=== PATIENT | male | born 1935 | race Caucasian/White ===

== ENCOUNTER 2017-02-04 18:01 | Emergency (ER) | payer MEDICARE ==
[2017-02-04 18:25] VITALS: BP 167/75
[2017-02-04] MEDS ORDERED: AZIT250T PO (18:52)
--- NOTE | 2017-02-04 18:53 | PHYS DOC ---
General Chief Complaint: SORE THROAT Stated Complaint: SORE THROAT Time Seen by MD: 18:51 Source: patient Exam Limitations: no limitations Problems: History of Present Illness Initial Comments Pt is 81/M to ED c/o sore throat. Pt states for past week or so he's had sore throat. No measured fevers, no myalgias/diaphoresis/RYAN. Pt eating and drinking well, OTC meds not helping. Pt also with facial pressure and green nasal discharge/PND Timing/Duration: last week Severity: mild Location: throat, facial Prearrival Treatment: over the counter meds Modifying Factors: worse with coughing Associated Symptoms: cough, sinus infection, sore throat Allergies: Coded Allergies: No Known Drug Allergies (Unverified , 02/04/17) Past Medical History Medical History: hypertension (CAD, HLP) Surgical History: cholecystectomy, coronary bypass surgery Social History Smoker: non-smoker Alcohol: none Drugs: none Constitutional: denies chills, denies fever Eyes: denies blindness, denies blurred vision, denies drainage, denies decreased acuity Ears: denies dizziness, denies pain Nose: see HPIdenies clots Throat: see HPI Respiratory: coughdenies shortness of breath, denies wheezing Cardiovascular: denies chest pain, denies palpitations Gastrointestinal: denies diarrhea, denies nausea, denies vomiting Physical Exam General Appearance: WD/WN, no apparent distress Ears: bilateral ear TM normal, bilateral ear auricle normal, bilateral ear canal normal Nose: discharge, sinus tenderness Mouth/Throat: other (pharynx red with exudate airway patent) Neck: supple, trachea midline, lymphadenopathy (R), lymphadenopathy (L) Cardiovascular/Respiratory: normal peripheral pulses, normal breath sounds, no respiratory distress Neurologic/Psychiatric: gauge maker II-XII nml as tested, no motor/sensory deficits, alert, normal mood/affect, oriented x 3 Skin: normal color, warm/dry Departure Time of Disposition: 18:52 Disposition: 01 HOME, SELF-CARE Diagnosis: pharyngitis Condition: GOOD Patient Instructions: Viral and Bacterial Pharyngitis, [id number] Additional Instructions: Aggressive hydration with gatorade, water. OTC tylenol, ibuprofen, and analgesic throat sprays as needed. Rx: zithromax, take with food. Follow up with your doctor in 10-14 days for recheck. Return to ED with new or changing symptoms. MYRA GALVIN DO February 04, 2017 18:53
[2017-02-04] MEDS ORDERED: AZITHROMYCIN 250 MG TABLET. PO ONE (19:00)
== END 2017-02-04 19:07 | disposition home or self-care (01) ==
LOC: ER 18:01
DX: J02.9 Acute pharyngitis, unspecified (principal); E78.5 Hyperlipidemia, unspecified; I25.10 Atherosclerotic heart disease of native coronary artery without angina pectoris; I10 Essential (primary) hypertension; Z95.1 Presence of aortocoronary bypass graft
CPT/HCPCS: 99283; J0456